=== PATIENT | female | born 1990 | race Caucasian/White ===

== ENCOUNTER 2024-07-09 08:55 | Inpatient (IN) ==
[2024-07-09 09:51] LABS: INR 1.13 (0.85-1.14)
[2024-07-09 10:06] LABS: Albumin 4.5 g/dL (3.2-5.2); Albumin/Globulin Ratio 1.7 (1-3); Calcium 9.7 mg/dL (8.6-10.3); Creatinine, Serum 0.69 mg/dL (0.51-0.95); Globulin 2.7 g/dL (2-4); Potassium 4.3 mmol/L (3.5-5.0); Total Bilirubin 0.4 mg/dL (0.2-1.0); Total Protein 7.2 g/dL (6.4-8.9); eGFR CKD-EPI 118.2 (>60)
[2024-07-09 10:13] LABS: HCG Pregnancy 0.72 mIU/mL
[2024-07-09 10:23] LABS: ABS Basophils 0.1 10^3/uL (0.0-0.1); ABS Eosinophils 0.1 10^3/uL (0.0-0.5); ABS Lymphocytes 1.5 10^3/uL (1.0-4.8); ABS Monocytes 0.9 10^3/uL (0.0-0.9); ABS Neutrophils 5.5 10^3/uL (1.5-7.6); Eosinophil % 1.3 %; Hematocrit 37.5 % (35-45); Hemoglobin 12.6 g/dL (11.5-14.3); Lymphocyte % 18.1 %; Mean Corpuscular Hemoglobin 29.6 pg (27-33); Mean Corpuscular Hgb Conc 33.5 g/dL (31-36); Mean Corpuscular Volume 88.4 fL (80-97); Mean Platelet Volume 9.1 fL (7.5-11.2); Platelet Count 244 10^3/uL (150-450); Red Blood Count 4.24 10^6/uL (3.63-4.92); Red Cell Distribution Width 18.3 % (12-17); White Blood Count 8.1 10^3/uL (3.8-11.8)
[2024-07-09 10:49] LABS: C Reactive Protein 3.91 mg/L (<8.01)
[2024-07-09 11:15] LABS: High Sensitivity Troponin 1 Hr 34 pg/mL (<15)
[2024-07-09] MEDS ORDERED: Sulfur Hexaflouride MICROSPHR 25 MG VIAL IV PRN (12:29)
[2024-07-09] MEDS: Morphine 4 MG/ML VIAL (1 ml) IV ONE (12:38)
[2024-07-09] MEDS: Piperacillin/Tazobac 3.375 BAG 3.375 GM/100 ML BAG IV ONE (12:41)
[2024-07-09 14:24] LABS: Erythrocyte Sed Rate 26 mm/Hr (0-19)
[2024-07-09] MEDS ORDERED: Morphine 10 MG/ML VIAL (1 ml) ONE (15:30)
[2024-07-09] MEDS: Morphine 10 MG/ML VIAL (1 ml) IV ONE (15:33)
[2024-07-09] MEDS ORDERED: Polyethylene Glycol 3350 17 GM PACKET PO PRN (18:12)
[2024-07-09] MEDS ORDERED: Magnesium Hydroxide LIQ 30 ML UDC PO PRN (18:12)
[2024-07-09] MEDS ORDERED: Senna TAB 8.6 mg TAB PO PRN (18:12)
[2024-07-09 20:52] LABS: TSH Ultra Thyroid Stim Horm 2.69 mcIU/mL (0.34-5.60)
[2024-07-09] MEDS: Enoxaparin 40 MG/0.4 ML SYR SUBCUT SCH (22:08)
[2024-07-09] MEDS: Morphine 2 MG/ML SYRINGE IV PRN (22:08)
[2024-07-09] MEDS: Magnesium Hydroxide LIQ 30 ML UDC PO SCH (22:08)
[2024-07-10] MEDS ORDERED: PREDNISOLONE 5 MG PO SCH (09:00)
[2024-07-10] MEDS: Potassium Chlor 20 meq TAB.ER PO SCH (09:42)
[2024-07-10] MEDS ORDERED: Albuterol HFA INHALER 8 gm MDI INH PRN (10:54)
[2024-07-10 18:31] LABS: TB2 Ag minus Nil Result -0.01 IU/mL
[2024-07-10 18:55] LABS: QuantiferonTb Gold Plus Result Negative (Negative)
[2024-07-11 07:47] LABS: Hemoglobin 11.9 g/dL (11.5-14.3); Mean Corpuscular Hemoglobin 30.1 pg (27-33); Mean Corpuscular Hgb Conc 34.1 g/dL (31-36); Mean Corpuscular Volume 88.3 fL (80-97); Mean Platelet Volume 9.3 fL (7.5-11.2); Platelet Count 209 10^3/uL (150-450); Red Blood Count 3.97 10^6/uL (3.63-4.92); Red Cell Distribution Width 17.7 % (12-17); White Blood Count 8.8 10^3/uL (3.8-11.8)
[2024-07-11 08:12] LABS: Calcium 9.2 mg/dL (8.6-10.3); Creatinine, Serum 0.61 mg/dL (0.51-0.95); Magnesium 1.9 mg/dL (1.9-2.7); eGFR CKD-EPI 121.7 (>60)
[2024-07-12 10:28] VITALS: BP 106/71
[2024-07-12] MEDS ORDERED: Sulfur Hexaflouride MICROSPHR 25 MG VIAL IV PRN (11:10)
[2024-07-17 09:43] LABS: Alpha 1 Antitrypsin A1A 188 mg/dL (100 - 190)
== END 2024-07-12 13:20 | disposition home or self-care (01) | DRG 207 ==
LOC: EDHOLD 08:55 → ED 08:55 → MEDTELE 17:02
PROVIDERS: ADMIT Student in an Organized Health Care Education/Training Program; ATTEND Student in an Organized Health Care Education/Training Program

== ENCOUNTER 2024-07-21 15:12 | Observation (INO) ==
[2024-07-21 15:51] LABS: Hematocrit 37.7 % (35-45); Hemoglobin 12.8 g/dL (11.5-14.3); Mean Corpuscular Hemoglobin 29.9 pg (27-33); Mean Corpuscular Hgb Conc 33.9 g/dL (31-36); Mean Corpuscular Volume 88.2 fL (80-97); Mean Platelet Volume 8.6 fL (7.5-11.2); Platelet Count 263 10^3/uL (150-450); Red Blood Count 4.28 10^6/uL (3.63-4.92); Red Cell Distribution Width 17.9 % (12-17); White Blood Count 14.4 10^3/uL (3.8-11.8)
[2024-07-21 16:00] LABS: INR 1.11 (0.85-1.14)
[2024-07-21 16:15] LABS: High Sens Troponin Baseline 7 pg/mL (<15)
[2024-07-21 16:31] LABS: ALT 18 U/L (7-52); AST 27 U/L (13-39); Albumin 4.2 g/dL (3.2-5.2); Albumin/Globulin Ratio 1.4 (1-3); Alkaline Phosphatase 57 U/L (35-149); Anion Gap 12 mmol/L (2-16); Blood Urea Nitrogen 15 mg/dL (6-24); CO2 Carbon Dioxide 24 mmol/L (22-32); Calcium 9.9 mg/dL (8.6-10.3); Chloride 103 mmol/L (101-111); Creatinine, Serum 0.67 mg/dL (0.51-0.95); Glucose 108 mg/dL (70-100); Potassium 3.8 mmol/L (3.5-5.0); Sodium 139 mmol/L (135-145); Total Bilirubin 0.4 mg/dL (0.2-1.0); Total Protein 7.2 g/dL (6.4-8.9)
[2024-07-21 16:48] LABS: ABS Basophils 0.1 10^3/uL (0.0-0.1); ABS Eosinophils 0.1 10^3/uL (0.0-0.5); ABS Lymphocytes 3.1 10^3/uL (1.0-4.8); ABS Monocytes 1.3 10^3/uL (0.0-0.9); ABS Neutrophils 9.6 10^3/uL (1.5-7.6); ABS Nucleated RBC 0.01 10^3/ul; Eosinophil % 0.9 %; Lymphocyte % 21.9 %; Nucleated Red Blood Cells % 0.1 %/100WBC (0.0-0.8); RBC Morphology Normal (Normal)
[2024-07-21] MEDS: Ondansetron 4 mg VIAL 2 MG/ML 2 ml VIAL IV ONE (17:11)
[2024-07-21 17:48] LABS: High Sensitivity Troponin 1 Hr 8 pg/mL (<15)
[2024-07-21] MEDS ORDERED: Morphine 4 MG/ML VIAL (1 ml) ONE (19:06)
[2024-07-21] MEDS: HYDROmorphone 1 MG/1 ML SYRINGE IV ONE (21:25)
[2024-07-21 22:25] LABS: Magnesium 1.9 mg/dL (1.9-2.7)
[2024-07-21 23:14] LABS: HCG Pregnancy < 0.60 mIU/mL
[2024-07-21] MEDS: HYDROmorphone 0.5 MG/0.5 ML SYRINGE IV SLOW PU ONE (23:15)
[2024-07-22] MEDS ORDERED: Sulfur Hexaflouride MICROSPHR 25 MG VIAL IV PRN (00:58)
[2024-07-22] MEDS: Potassium Chlor 20 meq TAB.ER PO SCH (01:07)
[2024-07-22] MEDS: Acetaminophen IV 1 GM/100ML 1,000 MG/100 ML BAG IV SCH (01:08)
[2024-07-22] MEDS: HYDROmorphone 0.5 MG/0.5 ML SYRINGE IV SLOW PU PRN (01:15)
[2024-07-22 06:42] LABS: Hematocrit 35.5 % (35-45); Hemoglobin 11.9 g/dL (11.5-14.3); Mean Corpuscular Hgb Conc 33.6 g/dL (31-36); Mean Corpuscular Volume 89.1 fL (80-97); Mean Platelet Volume 9.1 fL (7.5-11.2); Platelet Count 230 10^3/uL (150-450); Red Blood Count 3.98 10^6/uL (3.63-4.92); Red Cell Distribution Width 17.5 % (12-17); White Blood Count 14.2 10^3/uL (3.8-11.8)
[2024-07-22 07:21] LABS: Anion Gap 10 mmol/L (2-16); Blood Urea Nitrogen 14 mg/dL (6-24); C Reactive Protein 48.96 mg/L (<8.01); CO2 Carbon Dioxide 25 mmol/L (22-32); Calcium 9.5 mg/dL (8.6-10.3); Chloride 99 mmol/L (101-111); Creatinine, Serum 0.68 mg/dL (0.51-0.95); Glucose 86 mg/dL (70-100); Potassium 4.3 mmol/L (3.5-5.0); Rheumatoid Factor < 10 IU/mL (<15); Sodium 134 mmol/L (135-145); eGFR CKD-EPI 118.6 (>60)
[2024-07-22 07:40] LABS: ABS Basophils 0.1 10^3/uL (0.0-0.1); ABS Eosinophils 0.1 10^3/uL (0.0-0.5); ABS Lymphocytes 2.1 10^3/uL (1.0-4.8); ABS Monocytes 1.7 10^3/uL (0.0-0.9); ABS Neutrophils 10.2 10^3/uL (1.5-7.6); ABS Nucleated RBC 0.01 10^3/ul; Eosinophil % 0.6 %; Lymphocyte % 14.6 %
[2024-07-22 08:32] LABS: Erythrocyte Sed Rate 32 mm/Hr (0-19)
[2024-07-22] MEDS: CMCS: OMEGA-3 FATTY ACID 1000 mg(NF) PO SCH (09:04)
[2024-07-22] MEDS: Morphine 2 MG/ML SYRINGE IV ONE (19:41)
[2024-07-22] MEDS: Lactated Ringers 1000 ml BAG 1,000 ML IV SCH (22:14)
[2024-07-22] MEDS: [UNRECOGNIZED DRUG - OTHER] PO SCH (22:22)
[2024-07-23 11:00] LABS: Hematocrit 32.9 % (35-45); Hemoglobin 10.9 g/dL (11.5-14.3); Mean Corpuscular Hemoglobin 29.4 pg (27-33); Mean Platelet Volume 8.7 fL (7.5-11.2); Platelet Count 218 10^3/uL (150-450); White Blood Count 11.7 10^3/uL (3.8-11.8)
[2024-07-23 11:34] LABS: Calcium 9.1 mg/dL (8.6-10.3); Creatinine, Serum 0.55 mg/dL (0.51-0.95); Potassium 3.7 mmol/L (3.5-5.0); eGFR CKD-EPI 124.8 (>60)
[2024-07-23 12:03] LABS: Magnesium 1.8 mg/dL (1.9-2.7)
[2024-07-23] MEDS: Potassium Chloride LIQUID 20 MEQ/15 ML LIQUID PO ONE (13:37)
[2024-07-23] MEDS: Magnesium Sulfate 2 gm BAG 2 GM/50 ML BAG IVPB ONE (17:43)
[2024-07-23 21:58] LABS: HLA B27 Negative
[2024-07-24 07:05] LABS: Hemoglobin 11.2 g/dL (11.5-14.3); Mean Corpuscular Hemoglobin 30.1 pg (27-33); Mean Corpuscular Hgb Conc 33.9 g/dL (31-36); Mean Corpuscular Volume 88.9 fL (80-97); Mean Platelet Volume 9.1 fL (7.5-11.2); Platelet Count 214 10^3/uL (150-450); Red Blood Count 3.71 10^6/uL (3.63-4.92); Red Cell Distribution Width 17.1 % (12-17); White Blood Count 11.6 10^3/uL (3.8-11.8)
[2024-07-24 07:22] LABS: Creatinine, Serum 0.5 mg/dL (0.51-0.95); Potassium 3.8 mmol/L (3.5-5.0); eGFR CKD-EPI 127.7 (>60)
[2024-07-24] MEDS: Potassium Chloride LIQUID 20 MEQ/15 ML LIQUID PO ONE (08:06)
[2024-07-24] MEDS: Senna TAB 8.6 mg TAB PO PRN (08:08)
[2024-07-24 14:07] VITALS: BP 96/68
== END 2024-07-24 17:00 | disposition short-term general hospital (02) ==
LOC: ED 15:12 → EDHOLD 15:12 → SUATTDRO 22:00 → MEDTELE 07-23 15:27
PROVIDERS: ADMIT Internal Medicine; ATTEND Student in an Organized Health Care Education/Training Program

== ENCOUNTER 2024-10-25 12:03 | Inpatient (IN) ==
[2024-10-25 12:50] LABS: Hematocrit 25.9 % (35-45); Hemoglobin 8.5 g/dL (11.5-14.3); Mean Corpuscular Hemoglobin 29.1 pg (27-33); Mean Corpuscular Volume 88.2 fL (80-97); Platelet Count 205 10^3/uL (150-450); Red Blood Count 2.93 10^6/uL (3.63-4.92); Red Cell Distribution Width 19.1 % (12-17); White Blood Count 3.7 10^3/uL (3.8-11.8)
[2024-10-25 13:01] LABS: INR 1.29 (0.85-1.14)
[2024-10-25 13:17] LABS: Albumin 4.4 g/dL (3.5-5.7); Albumin/Globulin Ratio 1.8 (1-3); Calcium 10.2 mg/dL (8.6-10.3); Creatinine, Serum 0.6 mg/dL (0.51-0.95); Globulin 2.4 g/dL (2-4); Potassium 3.9 mmol/L (3.5-5.0); Total Bilirubin 0.7 mg/dL (0.2-1.0); Total Protein 6.8 g/dL (6.4-8.9); eGFR CKD-EPI 122.2 (>60)
[2024-10-25] MEDS: HYDROmorphone 1 MG/1 ML SYRINGE IV SLOW PU ONE ×3 (13:30→17:34)
[2024-10-25] MEDS: Acetaminophen IV 1 GM/100ML 1,000 MG/100 ML BAG IV ONE (13:30)
[2024-10-25 14:07] LABS: High Sensitivity Troponin 1 Hr 5 pg/mL (<15)
[2024-10-25] MEDS: Iohexol 350 (CONTRAST) 500 ML MDV IV ONE (14:25)
[2024-10-25 14:46] LABS: ABS Lymphocytes 0.7 10^3/uL (1.0-4.8); ABS Monocytes 0.4 10^3/uL (0.0-0.9); ABS Neutrophils 2.5 10^3/uL (1.5-7.6); ABS Nucleated RBC 0.02 10^3/ul; Lymphocyte % 19.5 %; Nucleated Red Blood Cells % 0.5 %/100WBC (0.0-0.8); Polychromasia 1+
[2024-10-25] MEDS: Morphine ER 30 mg TAB ** extended release PO ONE (16:20)
[2024-10-25] MEDS ORDERED: Senna TAB 8.6 mg TAB PO PRN (20:01)
[2024-10-25] MEDS: Acetaminophen IV 1 GM/100ML 1,000 MG/100 ML BAG IV PRN (20:24)
[2024-10-25] MEDS: HYDROmorphone 1 MG/1 ML SYRINGE IV SLOW PU PRN (20:25)
[2024-10-25] MEDS ORDERED: Sulfur Hexaflouride MICROSPHR 25 MG VIAL IV PRN (21:12)
[2024-10-25] MEDS: Morphine ER 30 mg TAB ** extended release PO SCH (21:18)
[2024-10-25] MEDS: Ondansetron 4 mg VIAL 2 MG/ML 2 ml VIAL IV PRN (22:41)
[2024-10-25] MEDS: Lactated Ringers 1000 ml BAG 1,000 ML IV ONE (22:41)
[2024-10-26] MEDS ORDERED: Morphine ER 30 mg TAB ** extended release PO SCH (06:00)
[2024-10-26 07:06] LABS: Hematocrit 22.8 % (35-45); Hemoglobin 7.6 g/dL (11.5-14.3); Mean Corpuscular Hemoglobin 29.6 pg (27-33); Mean Corpuscular Hgb Conc 33.3 g/dL (31-36); Platelet Count 189 10^3/uL (150-450); Red Blood Count 2.57 10^6/uL (3.63-4.92); Red Cell Distribution Width 19.2 % (12-17); White Blood Count 3.8 10^3/uL (3.8-11.8)
[2024-10-26 07:48] LABS: ABS Lymphocytes 0.9 10^3/uL (1.0-4.8); ABS Monocytes 0.5 10^3/uL (0.0-0.9); ABS Neutrophils 2.4 10^3/uL (1.5-7.6); ABS Nucleated RBC 0.01 10^3/ul; Anisocytosis 1+; Lymphocyte % 22.9 %; Nucleated Red Blood Cells % 0.3 %/100WBC (0.0-0.8); Polychromasia 1+
[2024-10-26 08:00] LABS: Albumin 3.9 g/dL (3.5-5.7); C Reactive Protein 75.61 mg/L (<8.01); Calcium 9.2 mg/dL (8.6-10.3); Creatinine, Serum 0.53 mg/dL (0.51-0.95); Potassium 3.8 mmol/L (3.5-5.0); Total Bilirubin 0.5 mg/dL (0.2-1.0); Total Protein 5.9 g/dL (6.4-8.9); eGFR CKD-EPI 125.9 (>60)
[2024-10-26] MEDS: Enoxaparin 40 MG/0.4 ML SYR SUBCUT SCH (08:08)
[2024-10-26] MEDS: HYDROmorphone 1 MG/1 ML SYRINGE IV SLOW PU PRN (10:34)
[2024-10-27 08:58] LABS: Hematocrit 22.4 % (35-45); Hemoglobin 7.3 g/dL (11.5-14.3); Mean Corpuscular Hemoglobin 28.8 pg (27-33); Mean Corpuscular Hgb Conc 32.7 g/dL (31-36); Mean Corpuscular Volume 87.9 fL (80-97); Mean Platelet Volume 8.8 fL (7.5-11.2); Platelet Count 179 10^3/uL (150-450); Red Blood Count 2.55 10^6/uL (3.63-4.92); White Blood Count 3.7 10^3/uL (3.8-11.8)
[2024-10-27] MEDS: HYDROmorphone 1 MG/1 ML SYRINGE IV ONE (09:52)
[2024-10-27] MEDS: HYDROmorphone 1 MG/1 ML SYRINGE IV SLOW PU PRN (12:40)
[2024-10-27] MEDS: NS 0.9% 500 ml BAG 500 ML IV SCH (16:01)
[2024-10-27] MEDS: Lactated Ringers 1000 ml BAG 1,000 ML IV SCH (17:29)
[2024-10-28] MEDS: Dexamethasone IV 4 MG/ML VIAL 1 ml VIAL IV SLOW PU ONE (06:36)
[2024-10-28] MEDS: Palonosetron 0.05 MG/ML 5 ML VIAL IV ONE (06:45)
[2024-10-28 07:53] LABS: Hematocrit 22.2 % (35-45); Hemoglobin 7.5 g/dL (11.5-14.3); Mean Corpuscular Hemoglobin 29.7 pg (27-33); Mean Corpuscular Hgb Conc 33.7 g/dL (31-36); Mean Corpuscular Volume 88.1 fL (80-97); Mean Platelet Volume 8.8 fL (7.5-11.2); Platelet Count 162 10^3/uL (150-450); Red Blood Count 2.52 10^6/uL (3.63-4.92); Red Cell Distribution Width 19.2 % (12-17); White Blood Count 3.5 10^3/uL (3.8-11.8)
[2024-10-28] MEDS: NS 0.9% IVPB SCH ×3 (08:01→09:15)
[2024-10-28] MEDS: MESNA IVPB SCH (08:01)
[2024-10-28 08:12] LABS: Albumin 3.8 g/dL (3.5-5.7); Albumin/Globulin Ratio 1.9 (1-3); Calcium 8.9 mg/dL (8.6-10.3); Creatinine, Serum 0.42 mg/dL (0.51-0.95); Total Bilirubin 0.6 mg/dL (0.2-1.0); Total Protein 5.8 g/dL (6.4-8.9); eGFR CKD-EPI 133.2 (>60)
[2024-10-28] MEDS: DOXORUBICIN IVPB SCH (08:37)
[2024-10-28] MEDS: NS 0.9% 500 ml BAG 500 ML IV SCH ×2 (08:45→12:43)
[2024-10-28] MEDS: IFOSFAMIDE IVPB SCH (09:15)
[2024-10-28 09:37] LABS: Ferritin 223.6 ng/mL (11-307)
[2024-10-28] MEDS: Lidocaine PATCH 5% PATCH TRANSDERM SCH (10:37)
[2024-10-28] MEDS: Ondansetron 4 mg VIAL 2 MG/ML 2 ml VIAL IV PRN (10:44)
[2024-10-28] MEDS: Morphine ER 30 mg TAB ** extended release PO SCH ×2 (14:15→20:10)
[2024-10-28] MEDS: Prochlorperazine 5 mg/ml 2 ml VIAL (10 mg) IV PRN (16:42)
[2024-10-29] MEDS: Dexamethasone IV 4 MG/ML VIAL 1 ml VIAL IV SLOW PU SCH (06:43)
[2024-10-29 07:19] LABS: Albumin 3.6 g/dL (3.5-5.7); Albumin/Globulin Ratio 1.8 (1-3); Calcium 8.9 mg/dL (8.6-10.3); Creatinine, Serum 0.45 mg/dL (0.51-0.95); Magnesium 1.8 mg/dL (1.9-2.7); Total Bilirubin 0.4 mg/dL (0.2-1.0); Total Protein 5.6 g/dL (6.4-8.9)
[2024-10-29 07:24] LABS: Hematocrit 20.9 % (35-45); Hemoglobin 6.8 g/dL (11.5-14.3); Mean Corpuscular Hgb Conc 32.6 g/dL (31-36); Mean Corpuscular Volume 88.9 fL (80-97); Mean Platelet Volume 9.2 fL (7.5-11.2); Platelet Count 173 10^3/uL (150-450); Red Blood Count 2.35 10^6/uL (3.63-4.92); Red Cell Distribution Width 19.3 % (12-17); White Blood Count 3.9 10^3/uL (3.8-11.8)
[2024-10-29 08:42] LABS: ABS Lymphocytes 0.7 10^3/uL (1.0-4.8); ABS Monocytes 0.4 10^3/uL (0.0-0.9); ABS Neutrophils 2.8 10^3/uL (1.5-7.6); ABS Nucleated RBC 0.02 10^3/ul; Anisocytosis 1+; Eosinophil % 0.7 %; Hypochromasia 2+; Lymphocyte % 18.1 %; Nucleated Red Blood Cells % 0.4 %/100WBC (0.0-0.8); Tear Drop Cells 1+
[2024-10-30 06:54] LABS: Hematocrit 23.9 % (35-45); Hemoglobin 8.1 g/dL (11.5-14.3); Mean Corpuscular Hemoglobin 29.8 pg (27-33); Mean Corpuscular Hgb Conc 33.9 g/dL (31-36); Mean Platelet Volume 9.2 fL (7.5-11.2); Platelet Count 167 10^3/uL (150-450); Red Blood Count 2.71 10^6/uL (3.63-4.92); Red Cell Distribution Width 19.1 % (12-17); White Blood Count 3.6 10^3/uL (3.8-11.8)
[2024-10-30 07:18] LABS: Albumin 3.5 g/dL (3.5-5.7); Albumin/Globulin Ratio 1.8 (1-3); Calcium 8.4 mg/dL (8.6-10.3); Creatinine, Serum 0.43 mg/dL (0.51-0.95); Magnesium 1.9 mg/dL (1.9-2.7); Potassium 3.6 mmol/L (3.5-5.0); Total Bilirubin 0.6 mg/dL (0.2-1.0); Total Protein 5.5 g/dL (6.4-8.9); eGFR CKD-EPI 132.4 (>60)
[2024-10-30 08:11] LABS: ABS Lymphocytes 0.6 10^3/uL (1.0-4.8); ABS Monocytes 0.3 10^3/uL (0.0-0.9); ABS Neutrophils 2.6 10^3/uL (1.5-7.6); ABS Nucleated RBC 0.01 10^3/ul; Anisocytosis 1+; Eosinophil % 1.1 %; Lymphocyte % 16.8 %; Nucleated Red Blood Cells % 0.2 %/100WBC (0.0-0.8)
[2024-10-30] MEDS ORDERED: Naloxone 0.4 mg VIAL 0.4 mg/ml 1 ml VIAL IV PUSH PRN (12:27)
[2024-10-30] MEDS: Palonosetron 0.05 MG/ML 5 ML VIAL IV ONE (14:32)
[2024-10-31 06:58] LABS: ABS Lymphocytes 0.5 10^3/uL (1.0-4.8); ABS Monocytes 0.1 10^3/uL (0.0-0.9); ABS Neutrophils 1.9 10^3/uL (1.5-7.6); Eosinophil % 1.3 %; Hematocrit 23.7 % (35-45); Lymphocyte % 21.2 %; Mean Corpuscular Hemoglobin 29.7 pg (27-33); Mean Corpuscular Hgb Conc 33.8 g/dL (31-36); Mean Corpuscular Volume 87.8 fL (80-97); Mean Platelet Volume 9.1 fL (7.5-11.2); Nucleated Red Blood Cells % 0.2 %/100WBC (0.0-0.8); Platelet Count 172 10^3/uL (150-450); Red Cell Distribution Width 18.9 % (12-17); White Blood Count 2.6 10^3/uL (3.8-11.8)
[2024-10-31 07:35] LABS: Albumin 3.5 g/dL (3.5-5.7); Albumin/Globulin Ratio 1.8 (1-3); Calcium 8.6 mg/dL (8.6-10.3); Creatinine, Serum 0.42 mg/dL (0.51-0.95); Potassium 3.5 mmol/L (3.5-5.0); Total Bilirubin 0.6 mg/dL (0.2-1.0); Total Protein 5.5 g/dL (6.4-8.9); eGFR CKD-EPI 133.2 (>60)
[2024-10-31] MEDS: Potassium Chloride LIQUID 20 MEQ/15 ML LIQUID PO ONE (10:36)
[2024-11-01 05:45] LABS: ABS Lymphocytes 0.4 10^3/uL (1.0-4.8); ABS Neutrophils 1.4 10^3/uL (1.5-7.6); Eosinophil % 1.9 %; Hematocrit 22.8 % (35-45); Hemoglobin 7.7 g/dL (11.5-14.3); Lymphocyte % 21.6 %; Mean Corpuscular Hemoglobin 29.4 pg (27-33); Mean Corpuscular Hgb Conc 33.8 g/dL (31-36); Mean Corpuscular Volume 87.1 fL (80-97); Nucleated Red Blood Cells % 0.1 %/100WBC (0.0-0.8); Platelet Count 157 10^3/uL (150-450); Red Blood Count 2.61 10^6/uL (3.63-4.92); Red Cell Distribution Width 18.7 % (12-17); White Blood Count 1.9 10^3/uL (3.8-11.8)
[2024-11-01 06:30] LABS: Albumin 3.6 g/dL (3.5-5.7); Albumin/Globulin Ratio 1.8 (1-3); Calcium 8.7 mg/dL (8.6-10.3); Creatinine, Serum 0.44 mg/dL (0.51-0.95); Magnesium 2.1 mg/dL (1.9-2.7); Potassium 3.2 mmol/L (3.5-5.0); Total Bilirubin 0.6 mg/dL (0.2-1.0); Total Protein 5.6 g/dL (6.4-8.9); eGFR CKD-EPI 131.7 (>60)
[2024-11-01] MEDS: Potassium Chloride LIQUID 20 MEQ/15 ML LIQUID PO ONE (08:41)
[2024-11-02] MEDS: Scopolamine 1 mg/72hr PATCH TRANSDERM SCH (11:55)
[2024-11-02] MEDS ORDERED: Ondansetron 4 mg VIAL 2 MG/ML 2 ml VIAL IV PRN (12:40)
[2024-11-02] MEDS: Ondansetron ODT 4 mg TAB 4 MG TAB PO PRN (16:30)
[2024-11-03 06:15] LABS: Hematocrit 20.8 % (35-45); Mean Corpuscular Hemoglobin 29.1 pg (27-33); Mean Corpuscular Hgb Conc 33.7 g/dL (31-36); Mean Corpuscular Volume 86.5 fL (80-97); Mean Platelet Volume 8.9 fL (7.5-11.2); Platelet Count 158 10^3/uL (150-450); Red Cell Distribution Width 18.5 % (12-17); White Blood Count 0.9 10^3/uL (3.8-11.8)
[2024-11-03 06:50] LABS: Creatinine, Serum 0.45 mg/dL (0.51-0.95); Potassium 3.9 mmol/L (3.5-5.0)
[2024-11-03 06:51] LABS: Albumin 3.9 g/dL (3.5-5.7); Albumin/Globulin Ratio 1.9 (1-3); Globulin 2.1 g/dL (2-4); Total Bilirubin 0.6 mg/dL (0.2-1.0)
[2024-11-03 07:39] LABS: ABS Lymphocytes 0.2 10^3/uL (1.0-4.8); ABS Neutrophils 0.7 10^3/uL (1.5-7.6); Eosinophil % 1.1 %; Nucleated Red Blood Cells % 0.2 %/100WBC (0.0-0.8)
[2024-11-04] MEDS: Saline NASAL SPRAY 0.65% BTL BOTH NARES PRN (02:28)
[2024-11-04] MEDS: CMCS: Saliva Substitute (NF) 1 SPRAY BTL MT PRN (02:28)
[2024-11-04 07:11] LABS: Albumin/Globulin Ratio 1.9 (1-3); Calcium 8.8 mg/dL (8.6-10.3); Creatinine, Serum 0.47 mg/dL (0.51-0.95); Globulin 2.1 g/dL (2-4); Potassium 3.4 mmol/L (3.5-5.0); Total Bilirubin 0.6 mg/dL (0.2-1.0); Total Protein 6.1 g/dL (6.4-8.9); eGFR CKD-EPI 129.6 (>60)
[2024-11-04 07:35] LABS: Hematocrit 19.7 % (35-45); Hemoglobin 6.7 g/dL (11.5-14.3); Mean Corpuscular Hemoglobin 29.2 pg (27-33); Mean Corpuscular Hgb Conc 34.1 g/dL (31-36); Mean Corpuscular Volume 85.6 fL (80-97); Mean Platelet Volume 8.1 fL (7.5-11.2); Platelet Count 129 10^3/uL (150-450); Red Cell Distribution Width 18.3 % (12-17); White Blood Count 0.5 10^3/uL (3.8-11.8)
[2024-11-04 07:36] LABS: ABS Lymphocytes 0.2 10^3/uL (1.0-4.8); ABS Neutrophils 0.2 10^3/uL (1.5-7.6); Eosinophil % 1.2 %; Lymphocyte % 47.4 %; Nucleated Red Blood Cells % 0.6 %/100WBC (0.0-0.8); RBC Morphology Normal (Normal)
[2024-11-04] MEDS: Potassium Chloride LIQUID 20 MEQ/15 ML LIQUID PO ONE (08:25)
[2024-11-04 17:06] VITALS: BP 97/62
[2024-11-04 17:08] LABS: Hematocrit 21.8 % (35-45); Hemoglobin 7.2 g/dL (11.5-14.3)
== END 2024-11-04 18:00 | disposition home or self-care (01) | DRG 207 ==
LOC: EDHOLD 12:03 → ED 12:03 → SUATTDRO 19:25 → MED 21:18 → SUATTDRO 10-26 10:34 → MED 10-26 14:22
PROVIDERS: ADMIT Internal Medicine; ATTEND Hospitalist

== ENCOUNTER 2024-11-07 13:44 | Inpatient (IN) ==
[2024-11-07] MEDS: Lactated Ringers 1000 ml BAG IV.FLUID IV ONE ×3 (14:11→16:12)
[2024-11-07] MEDS: Piperacillin/Tazobac 3.375 BAG 3.375 GM/100 ML BAG IV ONE (14:35)
[2024-11-07 14:36] LABS: Activated Partial Thrombo Time 30.8 seconds (26.0-38.0); INR 1.63 (0.85-1.14)
[2024-11-07 14:55] LABS: Potassium 3.2 mmol/L (3.5-5.0)
[2024-11-07 14:56] LABS: Albumin 4.2 g/dL (3.5-5.7); Albumin/Globulin Ratio 1.9 (1-3); C Reactive Protein 149.72 mg/L (<8.01); Calcium 9.4 mg/dL (8.6-10.3); Creatinine, Serum 0.55 mg/dL (0.51-0.95); Globulin 2.2 g/dL (2-4); Total Bilirubin 0.8 mg/dL (0.2-1.0); Total Protein 6.4 g/dL (6.4-8.9); eGFR CKD-EPI 124.8 (>60)
[2024-11-07] MEDS: Ondansetron 4 mg VIAL 2 MG/ML 2 ml VIAL IV ONE (15:09)
[2024-11-07 15:35] LABS: Anisocytosis 2+; Tear Drop Cells 1+
[2024-11-07 15:53] LABS: High Sensitivity Troponin 1 Hr 3 pg/mL (<15)
[2024-11-07] MEDS: KCL 20 MEQ/100 ML IVPREMIX 20 MEQ/100 ML BAG IV ONE (16:07)
[2024-11-07] MEDS: Acetaminophen IV 1 GM/100ML 1,000 MG/100 ML BAG IV ONE (16:35)
[2024-11-07] MEDS: HYDROmorphone 1 MG/1 ML SYRINGE IV ONE ×2 (16:36→19:29)
[2024-11-07 16:48] LABS: Hematocrit 19.6 % (35-45); Hemoglobin 6.6 g/dL (11.5-14.3); Mean Corpuscular Hemoglobin 28.8 pg (27-33); Mean Corpuscular Hgb Conc 33.6 g/dL (31-36); Mean Corpuscular Volume 85.7 fL (80-97); Mean Platelet Volume 9.3 fL (7.5-11.2); Platelet Count 37 10^3/uL (150-450); Red Blood Count 2.29 10^6/uL (3.63-4.92); Red Cell Distribution Width 17.3 % (12-17); White Blood Count 1.2 10^3/uL (3.8-11.8)
[2024-11-07 18:07] LABS: ABS Lymphocytes 0.4 10^3/ul (1.0-4.8); ABS Monocytes 0.3 10^3/ul (0.0-0.9)
[2024-11-07 18:13] LABS: ABS Neutrophils 0.4 10^3/ul (1.5-7.6)
[2024-11-07 20:34] LABS: Urine Appearance Turbid; Urine Bilirubin Negative (Negative); Urine Blood Negative (Negative); Urine Color Light-Yellow; Urine Glucose Negative (Negative); Urine Ketones Negative (Negative); Urine Nitrite Negative (Negative); Urine Protein Trace (Negative); Urine Specific Gravity 1.018 (1.002-1.030); Urine Urobilinogen Negative (Negative); Urine pH 7.5 (5.0-8.0)
[2024-11-07] MEDS ORDERED: NON FORMULARY MED (Acetaminophen 500 mg Tablet) PO PRN (21:48)
[2024-11-07] MEDS ORDERED: CMCS: Saliva Substitute (NF) 1 SPRAY BTL MT PRN (21:48)
[2024-11-07] MEDS: HYDROmorphone 1 MG/1 ML SYRINGE IV SLOW PU PRN (22:21)
[2024-11-07] MEDS: Ondansetron ODT 4 mg TAB 4 MG TAB PO PRN (22:25)
[2024-11-07] MEDS: Acetaminophen IV 1 GM/100ML 1,000 MG/100 ML BAG IV PRN (22:25)
[2024-11-07] MEDS: Scopolamine 1 mg/72hr PATCH TRANSDERM SCH (22:32)
[2024-11-07] MEDS: Lidocaine PATCH 5% PATCH TRANSDERM SCH (22:33)
[2024-11-08] MEDS ORDERED: Ondansetron 4 mg VIAL 2 MG/ML 2 ml VIAL ONE (01:26)
[2024-11-08] MEDS: HYDROmorphone 1 MG/1 ML SYRINGE IV SLOW PU PRN ×3 (01:27→10:08)
[2024-11-08] MEDS: Ondansetron ODT 4 mg TAB 4 MG TAB PO PRN (01:29)
[2024-11-08] MEDS: Morphine ER 30 mg TAB ** extended release PO SCH ×3 (05:33→22:42)
[2024-11-08] MEDS: Cefepime 2 GM in Dextrose 2 GM/50 ML BAG IV SCH ×2 (05:34→15:02)
[2024-11-08 06:14] LABS: Calcium 8.7 mg/dL (8.6-10.3); Creatinine, Serum 0.45 mg/dL (0.51-0.95); Magnesium 1.6 mg/dL (1.9-2.7); Potassium 3.5 mmol/L (3.5-5.0)
[2024-11-08] MEDS: Magnesium Sulf 4 GM/100 ML IV 4,000 MG/100 ML BAG IVPB ONE (06:26)
[2024-11-08] MEDS: Ondansetron 4 mg VIAL 2 MG/ML 2 ml VIAL IV PRN (06:31)
[2024-11-08 06:35] LABS: Hematocrit 15.7 % (35-45); Hemoglobin 5.4 g/dL (11.5-14.3); Mean Corpuscular Hemoglobin 29.6 pg (27-33); Mean Corpuscular Hgb Conc 34.3 g/dL (31-36); Mean Corpuscular Volume 86.4 fL (80-97); Red Blood Count 1.81 10^6/uL (3.63-4.92); Red Cell Distribution Width 17.7 % (12-17); White Blood Count 2.1 10^3/uL (3.8-11.8)
[2024-11-08 06:41] LABS: Mean Platelet Volume 10.2 fL (7.5-11.2); Platelet Count 25 10^3/uL (150-450)
[2024-11-08 07:13] LABS: ABS Lymphocytes 0.3 10^3/uL (1.0-4.8); ABS Neutrophils 1.8 10^3/uL (1.5-7.6); ABS Nucleated RBC 0.01 10^3/ul; Anisocytosis 2+; Eosinophil % 0.3 %; Nucleated Red Blood Cells % 0.3 %/100WBC (0.0-0.8); Tear Drop Cells 2+
[2024-11-08 18:32] LABS: Mean Platelet Volume 9.5 fL (7.5-11.2); Platelet Count 33 10^3/uL (150-450)
[2024-11-08 18:33] LABS: Hematocrit 23.4 % (35-45); Hemoglobin 8.1 g/dL (11.5-14.3); Mean Corpuscular Hemoglobin 29.8 pg (27-33); Mean Corpuscular Hgb Conc 34.4 g/dL (31-36); Mean Corpuscular Volume 86.7 fL (80-97); Red Cell Distribution Width 18.1 % (12-17)
[2024-11-09 06:07] LABS: Hematocrit 21.7 % (35-45); Hemoglobin 7.7 g/dL (11.5-14.3); Mean Corpuscular Hemoglobin 30.2 pg (27-33); Mean Corpuscular Hgb Conc 35.5 g/dL (31-36); Mean Corpuscular Volume 85.3 fL (80-97); Mean Platelet Volume 10.7 fL (7.5-11.2); Platelet Count 34 10^3/uL (150-450); Red Blood Count 2.54 10^6/uL (3.63-4.92); Red Cell Distribution Width 17.7 % (12-17); White Blood Count 8.4 10^3/uL (3.8-11.8)
[2024-11-09 06:09] LABS: Calcium 8.5 mg/dL (8.6-10.3); Creatinine, Serum 0.42 mg/dL (0.51-0.95); Potassium 3.5 mmol/L (3.5-5.0); eGFR CKD-EPI 133.2 (>60)
[2024-11-09 06:30] LABS: ABS Lymphocytes 0.6 10^3/uL (1.0-4.8); ABS Monocytes 0.8 10^3/uL (0.0-0.9); ABS Nucleated RBC 0.01 10^3/ul; Anisocytosis 1+; Dohle Bodies Present; Eosinophil % 0.1 %; Lymphocyte % 7.6 %; Nucleated Red Blood Cells % 0.1 %/100WBC (0.0-0.8); Polychromasia 1+; Toxic Granulation 2+
[2024-11-09] MEDS: HYDROmorphone 1 MG/1 ML SYRINGE IV SLOW PU PRN (14:49)
[2024-11-09] MEDS: Morphine ER 15 mg TAB ** extended release PO SCH (21:54)
[2024-11-10 06:19] LABS: Hematocrit 22.4 % (35-45); Hemoglobin 7.7 g/dL (11.5-14.3); Mean Corpuscular Hemoglobin 29.7 pg (27-33); Mean Corpuscular Hgb Conc 34.5 g/dL (31-36); Mean Corpuscular Volume 85.9 fL (80-97); Red Cell Distribution Width 18.2 % (12-17); White Blood Count 14.7 10^3/uL (3.8-11.8)
[2024-11-10 07:22] LABS: ABS Lymphocytes 0.8 10^3/uL (1.0-4.8); ABS Monocytes 1.7 10^3/uL (0.0-0.9); ABS Neutrophils 12.2 10^3/uL (1.5-7.6); ABS Nucleated RBC 0.02 10^3/ul; Anisocytosis 1+; Dohle Bodies Present; Large Platelets Present; Lymphocyte % 5.4 %; Mean Platelet Volume 10.1 fL (7.5-11.2); Nucleated Red Blood Cells % 0.1 %/100WBC (0.0-0.8); Platelet Count 57 10^3/uL (150-450); Toxic Granulation 3+
[2024-11-10 10:05] VITALS: BP 97/64
== END 2024-11-10 11:01 | disposition home or self-care (01) | DRG 660 ==
LOC: ED 13:44 → EDHOLD 13:44 → SUATTDRO 18:57 → MEDTELE 11-08 11:29
PROVIDERS: ADMIT Internal Medicine; ATTEND Internal Medicine